=== PATIENT | female | born 1980 | race Hispanic/Latino ===

== ENCOUNTER 2017-06-12 11:24 | Emergency (ER) | payer OTHER | END 2017-06-12 13:06 | disposition home or self-care (01) | LOC: M ED 11:24 | DX: S80.01XA Contusion of right knee, initial encounter (principal); W19.XXXA Unspecified fall, initial encounter; Y92.59 Other trade areas as the place of occurrence of the external cause; Y99.0 Civilian activity done for income or pay; Z79.899 Other long term (current) drug therapy; Z79.890 Hormone replacement therapy | CPT/HCPCS: 73564 ==

== ENCOUNTER 2017-09-23 11:43 | Emergency (ER) | payer OTHER ==
[2017-09-23 15:19] LABS: BASO % 0.4 % (0.0-1.0); EOS # 0.1 10^3/uL (0.0-0.50); EOS % 0.8 % (0.0-3.0); HEMATOCRIT 38.5 % (36.0-47.0); HEMOGLOBIN 11.5 g/dl (12.0-15.5); IMMATURE GRANULOCYTE % 0.4 % (0-3.0); LYMPH # 1.8 10^3/uL (1.5-4.5); LYMPH % 20.8 % (24.0-44.0); MEAN CORPUSCULAR HEMOGLOBIN 21.7 pg (27.0-33.0); MEAN CORPUSCULAR HGB CONC 29.9 g/dl (32.0-36.5); MEAN CORPUSCULAR VOLUME 72.6 fl (80.0-96.0); MONO # 0.6 10^3/uL (0.0-0.8); MONO % 6.8 % (0.0-5.0); NEUTROPHILS % 70.8 % (36.0-66.0); PLATELET COUNT, AUTOMATED 330 10^3/uL (150-450); RED CELL DISTRIBUTION WIDTH 26.5 % (11.5-14.5); WHITE BLOOD COUNT 8.5 10^3/uL (4.0-10.0)
[2017-09-23 15:57] LABS: KETONE, URINE AUTO RFX NEGATIVE (NEGATIVE); LEUKOCYTE ESTERASE UR AUTO RFX NEGATIVE (NEGATIVE); MUCUS, URINE RFX SMALL (NEGATIVE); NITRITE, URINE AUTO RFX NEGATIVE (NEGATIVE); RBC, URINE AUTO RFX 2 /HPF (0-3); SPECIFIC GRAVITY UR AUTO RFX 1.042 (1.002-1.035); SQUAM EPITHELIAL CELL UR AURFX 1 /HPF (0-6); WBC, URINE AUTO RFX 1 /HPF (0-3)
[2017-09-23 16:00] LABS: ANION GAP 11 MEQ/L (8-16); BLOOD UREA NITROGEN 9 MG/DL (7-18); CALCIUM LEVEL 8.8 MG/DL (8.5-10.1); CARBON DIOXIDE LEVEL 22 MEQ/L (21-32); CHLORIDE LEVEL 108 MEQ/L (98-107); GLOMERULAR FILTRATION RATE > 60.0 (>60); GLUCOSE, FASTING 152 MG/DL (70-100); HCG, SERUM QUANTITATIVE 66674 MIU/ML; SODIUM LEVEL 141 MEQ/L (136-145)
== END 2017-09-23 16:30 | disposition home or self-care (01) ==
LOC: M ED 11:43
DX: O20.9 Hemorrhage in early pregnancy, unspecified (principal); O24.111 Pre-existing type 2 diabetes mellitus, in pregnancy, first trimester; E11.65 Type 2 diabetes mellitus with hyperglycemia; O99.281 Endocrine, nutritional and metabolic diseases complicating pregnancy, first trimester; E89.0 Postprocedural hypothyroidism; Z85.850 Personal history of malignant neoplasm of thyroid; Z3A.09 9 weeks gestation of pregnancy; Z79.899 Other long term (current) drug therapy; Z79.84 Long term (current) use of oral hypoglycemic drugs
CPT/HCPCS: 76801

== ENCOUNTER → 2017-12-17 | Outpatient (CLI) | payer OTHER, SELFPAY | LOC: M EKG 16:00 | DX: O24.012 Pre-existing type 1 diabetes mellitus, in pregnancy, second trimester (principal); Z3A.18 18 weeks gestation of pregnancy | CPT/HCPCS: 93005 ==

== ENCOUNTER → 2018-03-07 | Outpatient (CLI) | payer OTHER ==
[~2018-03-07] MED LIST: GLYB125TA PO; JANU50TA8 PO; JARD1TAB PO; LEVO150T7 PO; NAPR250T4 PO; PRENTAB40 PO
--- NOTE | 2018-03-07 19:54 | REP ---
Obstetric sonography: History: Supervision of growth study. Findings: Scanning through the gravid uterus demonstrates a viable single intrauterine gestation in a cephalic lie. motion is observed and heart rate is recorded at 141 beats per minute. An anterior grade 2 placenta is seen without evidence of previa or abruption. Amniotic fluid is subjectively normal. Closed cervical length is 3.75 cm measured transabdominally. No extrauterine abnormalities observed. There has been appropriate interval growth. The following anatomic structures are identified and felt to be unremarkable: cranium, choroid plexus, cavum, cerebellum and posterior fossa, diaphragm, left-sided stomach, abdominal wall cord insertion, three-vessel cord, kidneys, bladder, spine, lower extremities. Biometry chart: BPD 8.1 cm 32 weeks 5 days Head circumference 30.0 cm 33 weeks 2 days Abdominal circumference 31.4 cm 35 weeks 2 days Femur length 6.4 cm 33 weeks 2 days Humeral length 5.5 cm 31 weeks 6 days HC/AC ratio normal 0.96, cephalic index normal 0.75, estimated weight 2391 grams, 5 pounds 4 ounces, 51st percentile for 34 weeks 0 days. JERICHO normal 14.4 cm. Impression: Viable single intrauterine gestation at 33 weeks 2 days by today's composite criteria. Expected gestational age estimate based on prior sonography is 33 weeks 2 days. CASSIE by prior sonography April 23, 2018. Appropriate interval growth. Electronically Signed by Tano Narayanan MD 03/08/2018 08:12 A
== END ==
LOC: M RAD 15:09
PROVIDERS: ATTEND Obstetrics & Gynecology
DX: Z36.9 Encounter for antenatal screening, unspecified (principal); Z3A.33 33 weeks gestation of pregnancy

== ENCOUNTER 2018-04-11 03:41 | Inpatient (IN) | payer OTHER ==
--- NOTE | 2018-04-02 14:43 | HPE ---
DATE OF ADMISSION: 04/11/2018 This lady is a 37-year-old 2, para 1, who is booked for elective repeat section on 04/11/2018. Her past history is in 2000 at 37 weeks, she had a section for nonreassuring heart tones. She was fully dilated. Had moderate polyhydramnios, and the baby's weight was 7 pounds 15 ounces. Her present risk factors is she had a history of thyroid cancer, is presently monitoring, and on medication. She has gestational diabetes mellitus (GDM) type 2. She is on oral hypoglycemics. She had a previous section. She is advanced maternal age, and she has chronic anemia. Also, her body mass index (BMI) is 38.15. Her laboratory work is: Her blood group was A+, antibody negative, HIV negative, hepatitis negative, rapid plasma reagin (RPR) negative, rubella immune, varicella immune. Urine was positive for mixed tameka. Gonorrhea and chlamydia are negative. Group B streptococcus (GBS) is undetermined at the present time. She is monitoring her blood sugars, and her average glucose runs about 118 mg/dl. The rest of the examination is unremarkable. She is normocephalic, atraumatic. Neck: Full range of motions. Pupils equal and reactive to light. She has a scar along the lower edge of her neck secondary to her thyroid disease and lymph node dissection. Carotid pulses are equal and full bilaterally. She has a category one strip. Her distal pulses are symmetric. No evidence of deep venous thrombosis (DVT), pulmonary embolism (PE), or superficial phlebitis. Lungs are clear bilaterally to bases. No wheezes or rhonchi. Abdomen is soft, quite protuberant. She does have a low transverse incision. Vertex presenting. Four quadrant bowel sounds are noted. She has no rashes, lesions or pruritus. No arthralgia or myalgia. No complaint of cough, wheezes, shortness of breath, or dyspnea on exertion. She is not bleeding. Neuro complete. No incontinency, urgency, or frequency. No nausea, vomiting, diarrhea, or constipation. Type 2 diabetes, on medication. Her gyne history is unremarkable. PAST MEDICAL HISTORY: Is thyroid cancer, treated aggressively and appropriately, and she is in remission now. PAST SURGICAL HISTORY: She has had the primary section. She has had a thyroidectomy with lymph node dissection. She has had vocal cord revision, tonsil- and adenoidectomy. FAMILY HISTORY: Is noncontributory. She does not smoke, drink, abuse drugs. She is to a soldier. No domestic violence. MEDICATIONS: As mentioned were oral hypoglycemics and vitamins and iron. On examination today, symphysis fundus height is 38, vertex presenting. heart is 150. Blood pressure is 132/73, respirations are 18, pulse is 78. She is afebrile. She presently has a total weight gain of 21.0 pounds in her present . We discussed the risks and benefits of repeat section, including hemorrhage, infection, perforation of organs, maternal demise, possibility but remote of hysterectomy, for life-threatening situation such as bleeding, possible but remote possibility of blood transfusions, lacerations to the fetus, and the possibility of baby being in intensive care unit (NICU) to stabilize blood sugars. After discussing risks and benefits of same plus the increased risk of wound infection because of her diabetes, signed and witnessed the consent form. All questions were answered. 20-minute discussion.
[2018-04-11] VITALS (9 sets, daily range): BP systolic 99–156; BP diastolic 50–78
[~2018-04-11] VITALS: Ht 157.5 cm; Wt 108.1 kg
[2018-04-11] MEDS ORDERED: LR 1,000 ML IV SCH ×2 (04:00→20:00)
[2018-04-11] MEDS ORDERED: BICITRA 30ML SOLN UDC PO ONE (04:00)
[2018-04-11] MEDS ORDERED: BUPIVACAINE HCL 0.25% 10 ML VIAL XX ONE (04:00)
[2018-04-11] MEDS ORDERED: AZITHROMYCIN INJ 500 MG, VIAL MATE ADAPTER 1 EACH in D5W 250 ML IV ONE ×2 (04:00→07:00)
[2018-04-11] MEDS ORDERED: NS 1,000 ML IV SCH (04:00)
[2018-04-11] MEDS ORDERED: ACETAMINOPHEN 650 MG SUPP PR ONE (04:00)
[2018-04-11] MEDS ORDERED: LACTATED RINGER'S 1000 ML IV STA (04:06)
--- NOTE | 2018-04-11 04:11 | IPNPDOC ---
Text Note Date of Service The patient was seen on 04/11/18. NOTE Ms. Flowers is a 37 yo at 39+0 weeks who presented to L&D this morning with ruptured membranes. She is scheduled for an ERLTCS this AM due to a history of one prior c section and no desire to attempt a TOLAC. Her is complicated by pre existing diabetes, obesity, hypothyroidism resulting from a history of thyroid cancer, and advanced maternal age. Vitals - VSS, afebrile, normotensive, non tachycardic On exam she is in no acute distress. She endorses intermittent cramping but no contraction pain. Grossly ruptured membranes confirmed on exam. Clear fluid. Cervix: /-3. FHR - BL - 150, moderate variability, no accels, no decels, Cat I tracing Ms. Flowers presents with PROM. She is not in active labor and feels no pain. Again she declines TOLAC this morning. Given her stability, will still plan on repeat c section at regularly scheduled time with Dr. London, i.e. 0730 this AM, which she is most comfortable with. If her status changes and labor commences, will proceed with c section now. All patient questions answered. DO JESSICA Christianson CHRISTOPHER J. DO Apr 11, 2018 04:11
[2018-04-11] MEDS ORDERED: diphenhydrAMINE INJ 50MG/ML VIAL (J1200) IV PRN (04:20)
[2018-04-11] MEDS ORDERED: ONDANSETRON 4MG/2ML VIAL (J2405) IV PRN ×2 (04:20→10:30)
[2018-04-11] MEDS ORDERED: NALOXONE INJ 0.4 MG/1 ML VIAL (J2310) IV PRN ×2 (04:20)
[2018-04-11] MEDS ORDERED: NALBUPHINE HCL 10 MG/ML AMP (J2300) IV PRN ×2 (04:20→10:30)
[2018-04-11 04:57] LABS: BASO % 0.3 % (0.0-1.0); EOS # 0.1 10^3/uL (0.0-0.50); EOS % 0.6 % (0.0-3.0); LYMPH # 1.9 10^3/uL (1.5-4.5); LYMPH % 16.1 % (24.0-44.0); MEAN CORPUSCULAR HEMOGLOBIN 21.9 pg (27.0-33.0); MONO # 0.9 10^3/uL (0.0-0.8); MONO % 7.6 % (0.0-5.0); NEUTROPHILS # 8.6 10^3/uL (1.8-7.7); NEUTROPHILS % 74.8 % (36.0-66.0); PLATELET COUNT, AUTOMATED 241 10^3/uL (150-450); RED BLOOD COUNT 4.11 10^6/uL (4.00-5.40); WHITE BLOOD COUNT 11.6 10^3/uL (4.0-10.0)
[2018-04-11] MEDS ORDERED: dexameTHASONE 4 MG/ML 1ML VIAL (J1100) As Ordered ONE (08:33)
[2018-04-11] MEDS ORDERED: OXYTOCIN INJ 10 UNITS/ML VIAL (J2590) As Ordered ONE ×2 (08:33→08:38)
[2018-04-11] MEDS ORDERED: MORPHINE PRES-FREE INJ 10 MG/10 ML VIAL (J2274) As Ordered ONE (08:33)
[2018-04-11] MEDS ORDERED: ONDANSETRON 4MG/2ML VIAL (J2405) As Ordered ONE ×2 (08:33→09:36)
[2018-04-11] MEDS ORDERED: BUPIVACAINE/DEXTROSE 0.75% 2 ML AMP As Ordered ONE (08:33)
[2018-04-11] MEDS: PRENATAL VITAMINS CHEWABLE TABLET PO SCH (09:00)
[2018-04-11 09:09] LABS: CORD GAS ABE A -7.4; CORD GAS O2 SAT A 21.3 %; CORD GAS PH A 7.247 UNITS; CORD GAS PO2 A 15.9 mmHg; CORD GAS SBC A 16.8 MEQ/L; CORD GAS TCO2 A 21.5 MEQ/L
[2018-04-11 09:10] LABS: CORD GAS HCO3 V 22.3 MEQ/L; CORD GAS O2 SAT V 50.8 %; CORD GAS PCO2 V 44.7 mmHg; CORD GAS PH V 7.316 UNITS; CORD GAS PO2 V 22.9 mmHg; CORD GAS TCO2 V 23.7 MEQ/L
[2018-04-11] MEDS ORDERED: OXYTOCIN DRIP 30 UNITS in APPROPRIATE DILUENT 1 EA IV SCH (09:26)
[2018-04-11] MEDS ORDERED: PERCOCET 5MG/325MG TAB PO PRN ×2 (09:30)
[2018-04-11] MEDS ORDERED: DOCUSATE SODIUM 100 MG CAP PO PRN (09:30)
[2018-04-11] MEDS ORDERED: OXYTOCIN INJ 10 UNITS/ML VIAL (J2590) IV ONE (09:30)
[2018-04-11] MEDS ORDERED: MEASLES,MUMPS,RUBELLA VACCINE INJ (MMR-II) (90707) SC SCH (09:30)
[2018-04-11] MEDS ORDERED: ANUSOL HC CREAM 30GM TOP PRN (09:30)
[2018-04-11] MEDS ORDERED: RHOGAM 300 MCG (1500 IU) INJ (J2790) IM SCH (09:30)
[2018-04-11] MEDS ORDERED: MOM 30ML SUSPENSION UDC PO PRN (09:30)
[2018-04-11] MEDS ORDERED: fentaNYL 100 MCG/2 ML INJECTION (J3010) As Ordered ONE (10:19)
[2018-04-11] MEDS ORDERED: fentaNYL 100 MCG/2 ML INJECTION (J3010) IV PRN (10:30)
[2018-04-11] MEDS: METOCLOPRAMIDE INJ 10MG/2ML VIAL (J2765) IV PRN ×2 (12:37→20:02)
[2018-04-11] MEDS: KETOROLAC 30 MG/ML VIAL (J1885) IV SCH ×3 (12:38→23:55)
[2018-04-11] MEDS ORDERED: JANUMET PO SCH (18:00)
[2018-04-11] MEDS ORDERED: LR 1,000 ML IV ONE (19:00)
[2018-04-12 02:21] VITALS: BP 110/57
[2018-04-12] MEDS: LEVOTHYROXINE 150MCG TABLET (0.15MG) PO SCH (06:10)
[2018-04-12] MEDS: KETOROLAC 30 MG/ML VIAL (J1885) IV SCH (06:10)
[2018-04-12 06:20] VITALS: BP 122/58
[2018-04-12 07:03] LABS: HEMATOCRIT 26.5 % (36.0-47.0); HEMOGLOBIN 7.6 g/dl (12.0-15.5); MEAN CORPUSCULAR HEMOGLOBIN 21.7 pg (27.0-33.0); MEAN CORPUSCULAR HGB CONC 28.7 g/dl (32.0-36.5); MEAN CORPUSCULAR VOLUME 75.5 fl (80.0-96.0); PLATELET COUNT, AUTOMATED 191 10^3/uL (150-450); RED BLOOD COUNT 3.51 10^6/uL (4.00-5.40); WHITE BLOOD COUNT 12.2 10^3/uL (4.0-10.0)
[2018-04-12] MEDS ORDERED: glyBURIDE 2.5 MG TAB PO SCH (07:30)
[2018-04-12] MEDS ORDERED: GLYBURIDE MICRONIZED 3 MG PO SCH (07:30)
[2018-04-12] MEDS: PRENATAL VITAMINS CHEWABLE TABLET PO SCH (09:05)
--- NOTE | 2018-04-12 09:54 | IPN ---
DATE OF SERVICE: 04/12/2018 day #1. This lady is a 37-year-old 2 now para 2, AGDM1. BMI of 38. Had a previous section, repeat section live female infant 7 pounds 15 ounces, 3590 grams. of 8 and 9 and one and five minutes respectively. Arterial pH 7.24, base excess -7.4, venous pH 7.31, base excess -4.0. Admitting hemoglobin was 9.0, hematocrit 30.0 and platelets were 241. day hemoglobin was 7.6, hematocrit 26.5 and platelets are 191. She is asymptomatic. Her blood pressure this morning is 122/58, respirations 16, pulse 80, temperature 97.4. We discussed phlebitis, cystitis, mastitis, endometritis, cellulitis, diet, exercise, pain management, perineal, breast and wound care. Abdomen soft, uterus two below. Four quadrant bowel sounds are noted. Incision is clean and dry. She has no shortness of breath, dyspnea on exertion. No chest pain. She is neuro complete. No nausea, vomiting, diarrhea or constipation. She is planning on discharge for tomorrow morning. control is uncertain at the present time. We discussed medications and they will be dispensed tomorrow at discharge. The patient is actively breast-feeding and doing well mobilizing.
[2018-04-12 10:00] VITALS: BP 118/59
[2018-04-12 14:00] VITALS: BP 145/70
[2018-04-12] MEDS: IBUPROFEN 800 MG TAB PO SCH ×2 (14:35→21:39)
[2018-04-12] MEDS ORDERED: PILL CRUSHER/CUTTER 1 EACH XX PRN (15:15)
[2018-04-12 17:56] VITALS: BP 167/87
[2018-04-12] MEDS ORDERED: GLYB3TA PO (18:00)
[2018-04-12 22:00] VITALS: BP 121/73
[2018-04-13 02:00] VITALS: BP 135/60
[2018-04-13 06:00] VITALS: BP 143/66
[2018-04-13] MEDS: IBUPROFEN 800 MG TAB PO SCH (06:01)
[2018-04-13] MEDS: LEVOTHYROXINE 150MCG TABLET (0.15MG) PO SCH (06:01)
[2018-04-13] MEDS: PRENATAL VITAMINS CHEWABLE TABLET PO SCH (08:41)
--- NOTE | 2018-04-13 09:08 | DS.PDOC ---
Discharge Summary General Date of Admission Apr 11, 2018 at 03:41 Date of Discharge [id number] Discharge Summary ADMITTING DIAGNOSES: labor DISCHARGE DIAGNOSES: Primary delivery HOSPITAL COURSE: Admitted and Cearean delivery recommended and done by Dr London. Had an uncomplicated low-transverse . course uncomplicated. DISCHARGE MEDICATIONS: Motrin, Lanolin, Colace, Percocet, Dibucaine DISCHARGE INSTRUCTIONS: Nothing in the vagina for 6 weeks. No driving for 2 weeks. No immersion of incision in dirty water for 4 weeks. F/U in OBGYN clinic 1-[address] London and in 6-8 weeks. Sessions Vital Signs/I&Os Vital Signs Date Time Temp Pulse Resp B/P (MAP) Pulse Ox O2 Delivery O2 Flow Rate FiO2 04/13/18 06:00 97.3 72 18 143/66 (91) 99 I&O- Last 24 Hours up to 6 AM 04/13/18 05:59 Output Total 500 ml Balance -500 ml Discharge Medications Scheduled Glyburide (Glyburide Micronized) 3 Mg Tab, 1.5 MG PO DAILY, (Reported) Levothyroxine Sodium (Synthroid) 150 Mcg Tab, 150 MCG PO DAILY, (Reported) Sitagliptin/Metformin (Janumet 50-1000 mg) 1 Tab Tab, 1 TAB PO BID, (Reported) Allergies Coded Allergies: No Known Allergies (Unverified , 06/12/17) SESSIONS,NAZIA Artis MD Apr 13, 2018 09:08
--- NOTE | 2018-04-13 09:13 | IPNPDOC ---
Text Note Date of Service The patient was seen on 04/13/18. NOTE POD2 PCD States feeling well, pain controlled with prescribed meds. Baby bonding and feeding well. No heavy VB. Lochia slowing. Ambulatory X1. Tolerating PO without issues. Voiding spont many times since almazan out yest. VSSAF NAD A&O RRR CTAB LE no C/C/E Ut at [facility] [employer] C/D/I a/p: Doing well. Cont routine postop care. D/C this AM. Sessions VS,Jinny, I+O VSJinny, I+O Vital Signs Date Time Temp Pulse Resp B/P (MAP) Pulse Ox O2 Delivery O2 Flow Rate FiO2 04/13/18 06:00 97.3 72 18 143/66 (91) 99 I&O- Last 24 Hours up to 6 AM 04/13/18 05:59 Output Total 500 ml Balance -500 ml SESSIONS,NAZIA Artis MD Apr 13, 2018 09:13
[2018-04-13] MEDS ORDERED: PRENTAB9 PO (10:05)
[2018-04-13] MEDS ORDERED: IBUP-1114 PO (10:05)
[2018-04-13] MEDS ORDERED: LEVO150T7 PO (10:07)
[2018-04-13] MEDS ORDERED: JANU50TA8 PO (10:08)
[2018-04-13] MEDS ORDERED: OXYC1TAB23 PO ×2 (10:13→10:14)
[2018-04-13] MEDS ORDERED: MOM30SS PO (10:14)
[2018-04-13] MEDS ORDERED: ANUS2.5C2 TOP (10:14)
[2018-04-13] MEDS ORDERED: COLA100C5 PO (10:14)
--- NOTE | 2018-04-14 15:31 | RO ---
DATE OF PROCEDURE: 04/11/2018 PREOPERATIVE DIAGNOSIS: Previous section, repeat section. POSTOPERATIVE DIAGNOSIS: Previous section, repeat section. PROCEDURE: SURGEON: Sahil London MD [employer] ASSISTANT: Amy Donaldson MD for extraction, retraction and visualization. ANESTHESIA: Spinal. ESTIMATED BLOOD LOSS: 300 mL. DESCRIPTION OF PROCEDURE: After adequate time-out, prepped and draped, in a supine position a Gallardo catheter in the bladder draining clear urine. Acetaminophen suppository 1300 mg per rectum. Sequential on board. Appropriate antibiotic therapy preop. A Pfannenstiel incision was made through the previous one, passing through abdominal layers, securing hemostasis. Opening peritoneal cavity, bladder reflected well anteriorly, low transverse incision to the uterus. She had already had a spontaneous rupture of membranes at 0300 hours, but there was some fluid available. We delivered a live female weighing 3590 grams, score of 8 and 9 at one and five minutes, respectfully, 7 pounds 15 ounces. Arterial pH was 7.24, base excess -7.4. Venous pH 7.31, base excess -4.0. The placenta was manually removed. Three-vessel cord, membranes and tissues intact. We swept out the uterus. No evidence of active membranes or tissue. The uterus contracted well down on Pitocin. The lower segment was oversewn in usual fashion with a running interlock stitch for the first and an inverted baseball stitch for the second, reperitonealization was performed. With instrument pad count correct, both ovaries and tubes appeared to be normal, the abdomen was then closed running stitch for the peritoneum, same for the fascia, interrupted subcu and Dexon to the skin. Marcaine 0.25%, 10 mL spray and Telfa, and the patient was sent back to recovery in good condition.
== END 2018-04-13 12:20 | disposition home or self-care (01) | DRG 773 ==
LOC: M LDI 03:41 → M OBS 11:49
PROVIDERS: ADMIT Obstetrics & Gynecology; ATTEND Obstetrics & Gynecology
PROC: 10D00Z1 Extraction of Products of Conception, Low, Open Approach (ICD-10-PCS; principal; 2018-04-11 07:30)
DX: O34.211 Maternal care for low transverse scar from previous cesarean delivery (principal); Z37.0 Single live birth; Z3A.39 39 weeks gestation of pregnancy; O24.425 Gestational diabetes mellitus in childbirth, controlled by oral hypoglycemic drugs; Z85.850 Personal history of malignant neoplasm of thyroid; O09.523 Supervision of elderly multigravida, third trimester; D64.9 Anemia, unspecified; O99.02 Anemia complicating childbirth

== ENCOUNTER → 2020-03-31 | Outpatient (CLI) | payer OTHER ==
[~2020-03-31] MED LIST changes: +ANUS2.5C2 TOP; +COLA100C5 PO; +GLYB3TAB2 PO; +IBUP-1114 PO; +MOM30SS PO; +OXYC1TAB23 PO; +PRENTAB9 PO
[2020-04-02 08:09] LABS: THRYOGLOBULIN ANTIBODIES (ATA) < 1.0 IU/mL (0.0-0.9)
== END ==
LOC: M PLALAB 14:45
PROVIDERS: ATTEND Nurse Practitioner Family
DX: Z85.850 Personal history of malignant neoplasm of thyroid (principal)